=== PATIENT | female | born 1950 | race Caucasian/White ===

== ENCOUNTER 2017-11-29 21:55 | Emergency (ER) | payer MEDICARE, MEDICAID ==
[~2017-11-29] VITALS: Ht 152.4 cm; Wt 43.0 kg
[~2017-11-29 21:55] MED LIST: ALPR-624 PO; CARI350T PO; DICY10CA88 PO; NORCO10T PO; RABE20TA25 PO; ZOLP12.531 PO
[2017-11-30 00:12] VITALS: BP 167/90
== END 2017-11-30 00:13 | disposition home or self-care (01) ==
LOC: ER 21:56
DX: S30.0XXA Contusion of lower back and pelvis, initial encounter (principal); K21.9 Gastro-esophageal reflux disease without esophagitis; G89.29 Other chronic pain; M81.0 Age-related osteoporosis without current pathological fracture; F12.90 Cannabis use, unspecified, uncomplicated; Z90.710 Acquired absence of both cervix and uterus; Z98.890 Other specified postprocedural states; Z60.2 Problems related to living alone; Z79.899 Other long term (current) drug therapy; W18.39XA Other fall on same level, initial encounter; Y93.89 Activity, other specified; Y92.89 Other specified places as the place of occurrence of the external cause; Y99.8 Other external cause status
CPT/HCPCS: 72100; 72220; 99284

== ENCOUNTER 2017-12-29 17:17 | Emergency (ER) | payer MEDICARE, MEDICAID ==
[~2017-12-29] VITALS: Ht 152.4 cm; Wt 46.0 kg
[2017-12-29 17:33] VITALS: BP 126/81
[2017-12-29] MEDS ORDERED: DIPH25CA83 PO (18:23)
[2017-12-29] MEDS ORDERED: PRED10TA23 PO (18:23)
[2017-12-29] MEDS ORDERED: FAMO-128 PO (18:23)
== END 2017-12-29 18:50 | disposition home or self-care (01) ==
LOC: ER 17:18
DX: L23.7 Allergic contact dermatitis due to plants, except food (principal); K21.9 Gastro-esophageal reflux disease without esophagitis; G89.29 Other chronic pain; M81.0 Age-related osteoporosis without current pathological fracture; F12.90 Cannabis use, unspecified, uncomplicated; Z90.710 Acquired absence of both cervix and uterus; Z98.890 Other specified postprocedural states; Z60.2 Problems related to living alone; Z79.899 Other long term (current) drug therapy
CPT/HCPCS: 99284

== ENCOUNTER 2020-02-15 21:01 | Emergency (ER) | payer BC, MEDICAID ==
[~2020-02-15] VITALS: Ht 152.4 cm; Wt 46.8 kg
[~2020-02-15 21:01] MED LIST changes: +DIPH25CA83 PO; +FAMO-128 PO
[2020-02-15 21:03] VITALS: BP 161/92
== END 2020-02-15 21:33 | disposition home or self-care (01) ==
LOC: ER 21:01
DX: G89.29 Other chronic pain (principal); J43.9 Emphysema, unspecified; K21.9 Gastro-esophageal reflux disease without esophagitis; M81.0 Age-related osteoporosis without current pathological fracture; F12.90 Cannabis use, unspecified, uncomplicated; Z90.710 Acquired absence of both cervix and uterus; Z98.890 Other specified postprocedural states; Z79.899 Other long term (current) drug therapy
CPT/HCPCS: 99281

== ENCOUNTER 2023-09-02 19:54 | Emergency (ER) | payer OTHER, MEDICAID ==
[~2023-09-02] VITALS: Ht 152.4 cm; Wt 50.0 kg
[2023-09-02 20:00] VITALS: BP 113/73; PULSE 98; RESP 18; TEMP 101; O2SAT 97
== END 2023-09-03 00:51 | disposition left against medical advice (07) ==
LOC: ER 19:55
DX: R51.9 Headache, unspecified (principal); J11.1 Influenza due to unidentified influenza virus with other respiratory manifestations; Z53.21 Procedure and treatment not carried out due to patient leaving prior to being seen by health care provider
CPT/HCPCS: 99281

== ENCOUNTER 2025-01-02 18:19 | Emergency (ER) | payer BC, MEDICAID ==
[~2025-01-02] VITALS: Ht 152.4 cm; Wt 39.6 kg
[2025-01-02 18:21] VITALS: BP 139/76; PULSE 76; RESP 16; TEMP 98.7; O2SAT 99
--- NOTE | 2025-01-02 18:33 | Physician Documentation ---
History of Present Illness Chief Complaint: See Chief Complaint Stated Complaint: SPOTS ON FACE Primary Medical Doctor: [facility] 74-year-old female presents to the emergency department today for evaluation of 2 spots on her cheek that she is concerned are possibly melanoma. Patient reports that the spots have changed in texture and now are dry. Medication Reconciliation Allergies: Coded Allergies: No Known Allergies (Unverified , 01/02/25) Scheduled Dicyclomine Hcl* (Bentyl*), 10 MG PO QID, (Reported) Diphenhydramine Hcl (Benadryl), 1 CAP PO Q6H Famotidine (Pepcid), 1 TAB PO Q12H Rabeprazole Sodium (Aciphex), 20 MG PO DAILY, (Reported) Zolpidem Tartrate CR* (Ambien CR*), 12.5 MG PO HS, (Reported) Scheduled PRN Alprazolam* (Xanax*), 1 MG PO BID PRN, (Reported) Carisoprodol* (Soma*), 350 MG PO QID PRN, (Reported) Hydrocodone Bit/Acetaminophen 10/325 MG* ([place] 10/325 MG*), 1 TAB PO QID PRN, (Reported) Past Medical History Past Medical History: Emphysema, Diverticulosis, GERD, Chronic Pain, Osteoporosis Past Surgical History: hysterectomy, orthopedic surgeries, other Alcohol Use: None Drug Use: marijuana Lives with: Alone Lives In: Home Occupation: disabled Review of Systems All Other Systems at this time: Reviewed and Negative ROS As stated above in the HPI, otherwise all systems are reviewed and negative. Physical Exam Vital Signs: Temperature: 98.7, Heart Rate: 76, Respiratory Rate: 16, BP: 139/76, Pulse Oximetry: 99, Weight: 39.600 Oxygen Flow Rate: 0 Physical Exam VITALS: Reviewed and as above. GENERAL: Alert, no apparent distress. HEENT: Normocephalic, atraumatic, PERRL, EOMI, dry mucosa, no erythema RESPIRATORY: Lungs clear, normal breath sounds, no respiratory distress. CHEST: No accessory muscle use, no retractions CV: Regular rate, rhythm, no edema, no murmur, No: JVD GI: Soft, non-tender, bowels sounds present, no rebound, guarding, or rigidity BACK: No CVA tenderness, or swelling MUSCULOSKELETAL No deformities, no edema SKIN: Warm and dry, no rash, brown path on left cheek and right cheek. NEURO: Oriented x4, No motor or sensory deficit PSYCH: Normal mood and affect, no agitation Progress Results/Orders Results/Orders Vital Signs 01/02/25 18:21 Temp 98.7 Pulse 76 Resp 16 B/P (MAP) 139/76 Pulse Ox 99 O2 Flow Rate 0 Medical Decision Making Findings Exam is negative for any concerning findings regarding presentation of melanoma at this time. Patient to follow up with Dermatology for a definitive rule out. Patient's presentation is more consistent with seborrheic keratosis. Departure Disposition: HOME / SELF CARE / HOMELESS Impression: Primary Impression: Seborrheic keratosis Condition: Stable Additional Instructions: Urine for small brown lesions on your face a were concerned about. Please follow up with your hoist operator or primary care provider for a referral to a hoist operator for a definitive diagnosis of these lesions and possible removal. Lesions were not found to be concerning for melanoma at this time, dermatologic evaluation and follow up is necessary. Referrals: NO PRIMARY CARE PROVIDER (PCP) Education Educated: Patient Educated regarding: diagnosis, need for follow up Signature Scribe Signature: . Attestation: Scribed for Dominga Jenkinsp by BRANT Aguilar . 01/02/25 19:24 DOMINGA JENKINS Jan 02, 2025 18:33
== END 2025-01-02 19:29 | disposition home or self-care (01) ==
LOC: ER 18:20
DX: L82.1 Other seborrheic keratosis (principal); J43.9 Emphysema, unspecified; M81.0 Age-related osteoporosis without current pathological fracture; Z90.710 Acquired absence of both cervix and uterus
CPT/HCPCS: 99282